=== PATIENT | male | born 1955 | race Caucasian/White ===

== ENCOUNTER 2017-01-18 08:46 | Day surgery (SDC) | payer OTHER ==
--- NOTE | 2017-01-17 13:08 | HP ---
- Patient Scheduled date of Surgery: 01/18/17 Scheduled Surgical Procedure: Excision of Pterygium Affected Eye: Right Chief Complaint (Indication for surgery): Decreased vision affecting ADLs ( irritation OD) - Ocular History Other Eye History: Other (cataract and KYLAH) Eye Medications: ketorolac, AT Previous Eye Surgery: none - Medical History Illnesses: Hypertension Current Medications: Ambulatory Orders Amlodipine Besylate [Norvasc -] 5 mg PO DAILY #30 tablet 04/09/12 Cyclobenzaprine HCl [Flexeril -] 10 mg PO TID PRN #21 tablet 03/12/14 Naproxen [Naprosyn -] 500 mg PO BID PRN #14 tablet 03/12/14 Allergies/Adverse Reactions: Allergies Allergy/AdvReac Type Severity Reaction Status Date / Time No Known Allergies Allergy Verified 03/12/14 19:41 Ocular Examination - Best Corrected Visual Acuity Distance: Right eye: 20/30 Distance: Left eye: 20/30 - External/Slit Lamp Examination Abnormalities: ptergygium with 1+ injeciton OD - Intraocular Pressure Intraocular Pressure - Right eye: 12 Intraocular Pressure-Left eye: 12 - Lens Lens: 1-2+ NS with vacuoles - Vitreous/Retina Vitreous/Retina: c:d 0.2 m/v/p wnl - Special Examination M - Right eye: plano-1.00 x 080 M - Left eye: -0.75 K - Right eye: 41.75/42.25 x 175 K - Left eye: 42.25/42.75 x 161 - Impression Impression: Other (ptergygium right eye) - Plan Plan: Other (ptergygium excision right eye with amniotic membrane graft right eye) Post-hospital care will be provided in office on: 01/19/17
--- NOTE | 2017-01-17 13:09 | HP ---
History & Physical Update - History History: No Change - Physical Physical: No Change - Assessment Assessment: No Change - Plan Plan: No Change
[2017-01-17 17:49] VITALS: BMI 28.8
[2017-01-18 09:06] VITALS: TEMP 98.1
[2017-01-18] MEDS ORDERED: LIDOCAINE 1%/EPI 1:100000 (20 ML MULTI DOSE VIAL) ONE (12:39)
[2017-01-18] MEDS ORDERED: TOBRAMYCIN/DEXAMETHASONE OPHTH. OINTMENT 1 TUBE ONE (12:39)
[2017-01-18] MEDS ORDERED: TOBRA 0.3%/DEXAMETH 0.1% OPHTHALMIC SUSP 2.5 ML BTL ONE (12:45)
[2017-01-18] MEDS ORDERED: LIDOCAINE HCL 2% JELLY (5 ML/TUBE) TP ONE (12:53)
[2017-01-18] MEDS ORDERED: POVIDONE-IODINE 5% OPHTHALMIC PREP 30 ML SOLUTION OD ONE (13:00)
[2017-01-18] MEDS ORDERED: MIDAZOLAM HCL 2 MG/2 ML SINGLE DOSE VIAL ONE (13:00)
[2017-01-18] MEDS ORDERED: LIDOCAINE 1%/EPI 1:100000 (20 ML MULTI DOSE VIAL) INF ONE ×2 (13:05)
[2017-01-18] MEDS ORDERED: BSS (NA/CA/MG/K) BALANCED SALT SOLUTION OPHTH SOLN 15 ML BOTTLE OD ONE (13:05)
[2017-01-18] MEDS ORDERED: TOBRA 0.3%/DEXAMETH 0.1% OPHTHALMIC SUSP 2.5 ML BTL OD ONE (13:27)
--- NOTE | 2017-01-18 13:33 | OP ---
Ophthalmology Operative Note Pre-Operative Diagnosis: Pterygium Affected Eye: Right Operation: Excision of Pterygium (with amniotic membrane graft) Findings: ptergyium right eye Post-Operative Diagnosis: Same as Pre-op Front End Web Developer: None Anesthesiologist: Shanda Richter MD Anesthesia: Topical Specimens Removed: pterygium right eye Estimated blood loss: 3 cc Drains & Tubes with Location: none Operative Report Dictated: No
[2017-01-18] MEDS: ACETAMINOPHEN 325 MG TABLET (FP) PO ONE ×2 (14:15→15:15)
[2017-01-18] MEDS ORDERED: ACETAMINOPHEN 325 MG TABLET (FP) ONE (14:17)
[2017-01-18 15:56] VITALS: BP 134/90; PULSE 60
--- NOTE | 2017-01-19 12:29 | OP ---
DATE OF OPERATION: 01/18/2017 PREOPERATIVE DIAGNOSIS: Pterygium, right eye. POSTOPERATIVE DIAGNOSIS: Pterygium, right eye. PROCEDURE: Pterygium excision with amniotic membrane graft, right eye. SURGEON: Elissa Thompson MD TARP REPAIRER: None. ANESTHESIA: Topical. ANESTHESIOLOGIST: Shanda Richter MD OPERATIVE PROCEDURE: Following satisfactory intravenous sedation, the patient received 2% lidocaine gel and was then prepped and draped in the usual sterile fashion so as to expose only the right eye. Ophthalmic Betadine was instilled into the inferior fornix and the lashes were taped out of the surgical field. An eye lid speculum was placed into the right eye. The pterygium body was marked with the sterile marking pen and 0.5 mL of lidocaine 1% with epinephrine was injected into the pterygium head in order to dissect it off the sclera. The pterygium head was then grasped with 0.12 and dissected off the cornea with blunt force and the pterygium body was then dissected from the sclera using Jose Manuel scissors and additional Tenon's capsule was dissected using the Jose Manuel scissors. The corneal surface was smoothed using a 57 blade and a mor rudi and any bleeding vessels were cauterized using cautery and the size of the defect was then measured to be 14 mm x 5 mm and an amniotic membrane graft was fashioned of this size and the 2 components of Tisseel glue were constituted and injected under the graft until coagulation was achieved. Excess glue was excised and a corneal shield soaked in Tobradex drops was placed on the eye. The speculum was removed from the eye and a pressure patch was placed on the eye. The patient was told to return to the office in 1 day. Claudia [id number]
--- NOTE | 2017-01-22 15:40 | PATH ---
Surgical Pathology Report Patient Name: ZONIA DE LA CRUZ [facility]. Rec. #: [id number] /Age/Gender: 1955 (Age: 61) / M Account: [id number] Location: [facility] SUR[facility]ICAL Taken: 01/18/2017 Received: 01/19/2017 Reported: 01/22/2017 Physicians: Elissa Kingsley Specimen(s) Received PTERYGIUM RIGHT EYE Clinical History Pterygium right eye Final Diagnosis EYE, RIGHT, PTERYGIUM, EXCISION: CONSISTENT WITH PTERYGIUM. Electronically Signed Altagracia Diaz M.D. Gross Description Received in formalin labeled "pterygium right eye," is a 0.7 cm in greatest dimension hart soft tissue fragment. The specimen is submitted in toto in one cassette. 01/19/201701/19/2017
== END 2017-01-18 15:05 | disposition home or self-care (01) ==
LOC: JASU-SURG 08:46
PROVIDERS: ATTEND Ophthalmology
PROC: 08U007Z Supplement of Right Eye with Autologous Tissue Substitute, Open Approach (ICD-10-PCS; principal; 2017-01-18 10:30)
DX: H11.001 Unspecified pterygium of right eye (principal)
CPT/HCPCS: 88304-TC

== ENCOUNTER 2019-11-03 19:12 | Emergency (ER) | payer OTHER ==
--- NOTE | 2019-11-03 19:18 | PDOC ---
Rapid Medical Evaluation Time Seen by Provider: 11/03/19 19:16 Medical Evaluation: Allergies Allergy/AdvReac Type Severity Reaction Status Date / Time No Known Allergies Allergy Verified 03/12/14 19:41 11/03/19 19:16 Pt with PMH of HTN presents to the ER for headache, dizziness and hypertension for one week. States he takes his medication as directed. Also notes that he had palpitations Exam: BP 154/108, neurologically intact Orders: EKG, labs, IV insert Pt to proceed to the ER for further evaluation Discharge Disposition - Diagnosis Headache Qualifiers: Headache type: unspecified Headache chronicity pattern: acute headache Intractability: not intractable Qualified Code(s): R51 - Headache Hypertension Qualifiers: Hypertension type: unspecified Qualified Code(s): I10 - Essential (primary) hypertension - Referrals - Patient Instructions - Post Discharge Activity
[2019-11-03 19:33] VITALS: BMI 29.6
--- NOTE | 2019-11-03 21:02 | PDOC ---
*Physical Exam - Vital Signs Last Vital Signs Temp Pulse Resp BP Pulse Ox 99.0 F 79 20 147/101 H 98 11/03/19 19:28 11/03/19 20:39 11/03/19 20:39 11/03/19 20:39 11/03/19 20:39 ED Treatment Course - LABORATORY CBC & Chemistry Diagram: 11/03/19 21:28 11/03/19 21:28 Medical Decision Making - Medical Decision Making 11/03/19 21:02 Patient seen by the advanced practice provider under my supervision. Ancillary testing reviewed as necessary. I agree with plan as outlined by the advanced practice provider. Discharge - Discharge Information Problems reviewed: Yes Clinical Impression/Diagnosis: Headache Qualifiers: Headache type: unspecified Headache chronicity pattern: acute headache Intractability: not intractable Qualified Code(s): R51 - Headache Hypertension Qualifiers: Hypertension type: unspecified Qualified Code(s): I10 - Essential (primary) hypertension Condition: Fair - Follow up/Referral - Patient Discharge Instructions Patient Printed Discharge Instructions: How to Monitor Your Blood Pressure at Home Additional Instructions: Start a diet low in sodium. Monitor your blood pressure daily. Follow-up with your doctor as soon as possible Return to the emergency room for any worsening symptoms - Post Discharge Activity Work/Back to School Note: Back to Work
--- NOTE | 2019-11-03 21:06 | PDOC ---
History of Present Illness - General Chief Complaint: Blood Pressure Problem Stated Complaint: HIGH BLOOD PRESSURE Time Seen by Provider: 11/03/19 19:16 History Source: Patient - History of Present Illness Initial Comments: 11/03/19 22:21 64-year-old male complaining of headache and dizziness with high blood pressure readings at home for the last 1 week. Denies chest pain, diaphoresis, nausea, vomiting, abdominal pain, weakness. Patient reports that he was unable to get as soon appointment with PCP and is worried about high blood pressure reading. Patient denies any symptoms at this time reports that he had symptoms earlier during the day. Past medical history hypertension currently on amlodipine 5 mg and lisinopril. Past History - Medical History Allergies/Adverse Reactions: Allergies Allergy/AdvReac Type Severity Reaction Status Date / Time No Known Allergies Allergy Verified 11/03/19 19:28 Home Medications: Ambulatory Orders Amlodipine Besylate [Norvasc -] 10 mg PO DAILY 01/17/17 COPD: No HTN: Yes - Psycho-Social/Smoking History Smoking Status: No Smoking History: Never smoked Number of Cigarettes Smoked Daily: 0 - Substance Abuse Hx (Audit-C & DAST Scrn) How often the patient has a drink containing alcohol: Never Score: In Men: 4 or > Positive; In Women: 3 or > Positive: 0 Screen Result (Pos requires Nsg. Audit-10AR): Negative In the last yr the pt used illegal drug/Rx for NonMed reason: No Score: Yes response is considered Positive: 0 Screen Result (Positive result requires Nsg. DAST-10): Negative Review of Systems - Review of Systems Able to Perform ROS?: Yes Is the patient limited Egyptian proficient: No Constitutional: No: Symptoms Reported, See HPI, Chills, Diaphoresis, Fever, Loss of Appetite, Malaise, Night Sweats, Weakness, Weight Stable, Unintentional Wgt. Loss, Unexplained wgt Loss, Other *Physical Exam - Vital Signs Last Vital Signs Temp Pulse Resp BP Pulse Ox 98.6 F 80 18 151/98 98 11/04/19 00:37 11/04/19 00:37 11/04/19 00:37 11/04/19 00:37 11/04/19 00:37 - Physical Exam General Appearance: Yes: Appropriately Dressed Respiratory/Chest: positive: Lungs Clear, Normal Breath Sounds Cardiovascular: positive: Regular Rhythm, Regular Rate Musculoskeletal: positive: Normal Inspection Extremity: positive: Normal Capillary Refill, Normal Inspection, Normal Range of Motion Integumentary: positive: Normal Color, Dry, Warm Neurologic: positive: executive coordinator II-XII NML intact, Fully Oriented, Alert, Normal Mood/Affect, Normal Response, Motor Strength 06/16 ED Treatment Course - LABORATORY CBC & Chemistry Diagram: 11/03/19 21:28 11/03/19 21:28 - ADDITIONAL ORDERS Additional order review: Laboratory Results 11/03/19 11/03/19 21:28 21:28 PT with INR 13.00 INR 1.10 H Sodium 140 Potassium 3.5 Chloride 104 Carbon Dioxide 31 Anion Gap 5 L BUN 12.8 Creatinine 1.4 H Est GFR (CKD-EPI)AfAm 60.68 Est GFR (CKD-EPI)NonAf 52.35 Random Glucose 91 Calcium 8.8 Total Bilirubin 0.8 AST 26 ALT 31 Alkaline Phosphatase 78 Creatine Kinase 241 Creatine Kinase Index 0.6 CK-MB (CK-2) 1.6 Troponin I < 0.02 Total Protein 7.6 Albumin 3.8 11/03/19 21:28 RBC 4.86 MCV 96.4 H MCHC 33.4 RDW 14.5 MPV 8.8 Neutrophils % 59.1 Lymphocytes % 27.7 Monocytes % 10.5 H Eosinophils % 2.1 Basophils % 0.6 - RADIOLOGY Radiology Studies Ordered: Category Date Time Status HEAD CT WITHOUT CONTRAST [CT] Stat CT Scan 11/03/19 21:38 Taken Medical Decision Making - Medical Decision Making 11/04/19 00:10 A: hypertension; headache P: labs head ct advised to increase to norvasc 10 mg until pcp appointment this week 11/04/19 00:16 CT head: there is no acute intraparenchymal hemorrhage. There is no intra or extra-axial collection. No mass effect or midline shift. No evidence for major vessel acute territorial infarction. Velarde-white matter differentiation is maintained. The ventricles are normal in size and position for patient's age. Note is made of bilateral basal ganglia calcification. The para nasal sinuses and mastoid air cells are unopacified. Visualized orbits are unremarkable. Calvarium and soft tissues are unremarkable. Discharge - Discharge Information Problems reviewed: Yes Clinical Impression/Diagnosis: Headache Qualifiers: Headache type: unspecified Headache chronicity pattern: acute headache Intractability: not intractable Qualified Code(s): R51 - Headache Hypertension Qualifiers: Hypertension type: unspecified Qualified Code(s): I10 - Essential (primary) hypertension Condition: Fair - Follow up/Referral - Patient Discharge Instructions Patient Printed Discharge Instructions: How to Monitor Your Blood Pressure at Home Additional Instructions: Start a diet low in sodium. Monitor your blood pressure daily. Follow-up with your doctor as soon as possible Return to the emergency room for any worsening symptoms - Post Discharge Activity Work/Back to School Note: Back to Work
[2019-11-03 22:09] LABS: INR 1.1 (0.83-1.09)
[2019-11-03 22:13] LABS: BASO % 0.6 % (0-2.0); EOS % 2.1 % (0-4.5); HEMATOCRIT 46.9 % (35.4-49); HEMOGLOBIN 15.7 GM/dL (11.7-16.9); LYMPH % 27.7 % (8-40); MCH 32.2 pg (25.7-33.7); MCHC 33.4 g/dl (32.0-35.9); MEAN CELL VOLUME 96.4 fl (80-96); MEAN PLT VOLUME 8.8 fl (7.5-11.1); MONO % 10.5 % (3.8-10.2); NEUT % 59.1 % (42.8-82.8); PLATELET COUNT 217 K/MM3 (134-434); RBC 4.86 M/mm3 (4.00-5.60); RDW 14.5 % (11.9-15.9); WHITE BLOOD COUNT 7.2 K/mm3 (4.0-10.0)
[2019-11-03 22:58] LABS: ALBUMIN 3.8 g/dl (3.4-5.0); ALK PHOS 78 U/L (45-117); ANION GAP 5 MMOL/L (8-16); BILIRUBIN,TOTAL 0.8 mg/dL (0.2-1); BLOOD UREA NITROGEN 12.8 mg/dL (7-18); CALCIUM 8.8 mg/dL (8.5-10.1); CHLORIDE 104 mmol/L (98-107); CO2 31 mmol/L (21-32); CREATININE 1.4 mg/dL (0.55-1.3); GLUCOSE,RANDOM 91 mg/dL (74-106); POTASSIUM 3.5 mmol/L (3.5-5.1); SGOT/AST 26 U/L (15-37); SGPT/ALT 31 U/L (13-61); SODIUM 140 mmol/L (136-145); TOT PROT 7.6 g/dl (6.4-8.2)
[2019-11-04 00:39] VITALS: BP 151/98; PULSE 80; TEMP 98.6
--- NOTE | 2019-11-04 09:39 | EKG ---
Test Reason : Blood Pressure : / mmHG Vent. Rate : 062 BPM Atrial Rate : 062 BPM P-R Int : 154 ms QRS Dur : 090 ms QT Int : 380 ms P-R-T Axes : 003 004 031 degrees QTc Int : 385 ms NORMAL SINUS RHYTHM NONSPECIFIC T WAVE ABNORMALITY ABNORMAL ECG NO PREVIOUS ECGS AVAILABLE Confirmed by Sulaiman Mart ([id number]) on 11/04/2019 9:38:54 AM Referred By: Confirmed By:Sulaiman Mart
== END 2019-11-04 00:39 | disposition home or self-care (01) ==
LOC: JER 19:12
DX: R51 Headache (principal); I10 Essential (primary) hypertension
CPT/HCPCS: 36415; 70450-TC; 80053; 82550; 82553; 84484; 85025; 85610; 93005; 93010; 99285-25

== ENCOUNTER 2022-10-15 13:01 | Emergency (ER) | payer MEDICARE ==
[2022-10-15 13:12] VITALS: BP 127/77; PULSE 63; RESP 18; TEMP 99; BMI 29.5
[2022-10-15] MEDS ORDERED: CEPHALEXIN MONOHYDRATE 500 MG CAPSULE (UD) PO ONE (13:46)
[2022-10-15] MEDS ORDERED: predniSONE 20 MG TABLET (UD) PO ONE (13:46)
[2022-10-15] MEDS ORDERED: CEPHALEXIN MONOHYDRATE 500 MG CAPSULE (UD) ONE (13:49)
[2022-10-15] MEDS ORDERED: predniSONE 20 MG TABLET (UD) ONE (13:49)
== END 2022-10-15 15:59 | disposition home or self-care (01) ==
LOC: JERFT 13:01 → JER 13:01 → JERFT 15:59
DX: M79.641 Pain in right hand (principal); R22.31 Localized swelling, mass and lump, right upper limb
CPT/HCPCS: 73110-TC-RT-FY; 99283-25